=== PATIENT | female | born 1950 | race Caucasian/White ===

== ENCOUNTER → 2017-12-07 | Outpatient (CLI) | payer MEDICARE | END | disposition home or self-care (01) | LOC: RAD 12:20 | DX: M25.552 Pain in left hip (principal); I10 Essential (primary) hypertension; K21.9 Gastro-esophageal reflux disease without esophagitis; G89.29 Other chronic pain | CPT/HCPCS: 73502 ==

== ENCOUNTER 2020-01-20 09:20 | Emergency (ER) | payer BC, MEDICARE ==
[~2020-01-20] VITALS: Ht 157.5 cm; Wt 65.9 kg
[~2020-01-20 09:20] MED LIST: ALPR0.254 PO; AMLO5TAB10 PO; ASPI81TA50 PO; BENA20TA4 PO; DICL75TA PO; FERR-36 PO; FLAX10003 PO; HYDR15SO6 PO; MULT-212 PO; OMEG500C PO; OMEP40CA45 PO; POLY17PO29 PO; PRAV40TA2 PO
[2020-01-20] MEDS ORDERED: MECLIZINE HCL 12.5 MG TABLET. PO ONE (11:30)
--- NOTE | 2020-01-20 11:30 | PHYS DOC ---
Past Medical History Past Medical History: Hypertension, Other Additional Past Medical Histor: VERTIGO (LATESHA FAUSTIN APRN) Past Surgical History: Tubal ligation, Other Additional Past Surgical Histo: HIATAL HERNIA REPAIR (LATESHA FAUSTIN APRN) Smoking Status: Former Smoker Alcohol Use: Occasionally (LATESHA FAUSTIN APRN) General Adult EDM: Chief Complaint: MECHANICAL FALL HPI: HPI: Patient is a 70 year old female with history of hypertension, vertigo, who presents to the ED today complaining of a 5 out of 10 intermittent throbbing posterior head pain, posterior neck pain, mid and low back pain that began after falling this morning. 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 Patient denies any loss of consciousness. Denies any nausea, vomiting. (LATESHA FAUSTIN APRN) Review of Systems: Review of Systems: Constitutional: Denies fever or chills. [] Eyes: Denies change in visual acuity. [] HENT: Denies nasal congestion or sore throat. [] Respiratory: Denies cough or shortness of breath. [] Cardiovascular: Denies chest pain or edema. [] GI: Denies abdominal pain, nausea, vomiting, bloody stools or diarrhea. [] : Denies dysuria. [] Musculoskeletal: Reports posterior neck pain, mid and low back pain Integument: Denies rash. [] Neurologic: Reports head pain, denies focal weakness or sensory changes. [] Endocrine: Denies polyuria or polydipsia. [] Lymphatic: Denies swollen glands. [] Psychiatric: Denies depression or anxiety. [] (LATESHA FAUSTIN APRN) Heart Score: Risk Factors: Risk Factors: DM, Current or recent (<one month) smoker, HTN, HLP, family history of CAD, obesity. Risk Scores: Score 0 - 3: 2.5% MACE over next 6 weeks - Discharge Home Score 4 - 6: 20.3% MACE over next 6 weeks - Admit for Clinical Observation Score 7 - 10: 72.7% MACE over next 6 weeks - Early Invasive Strategies (LATESHA FAUSTIN APRN) Current Medications: Current Medications Medications (Trade) Dose Ordered Sig/Eloisa Start Time Stop Time Status Last Admin Dose Admin Meclizine HCl (Antivert) 12.5 mg 1X ONCE 01/20/20 11:30 01/20/20 11:31 (LATESHA FAUSTIN APRN) Allergies: Allergies: Allergies Coded Allergies Type Severity Reaction Last Updated Verified No Known Drug Allergies 09/30/15 No (LATESHA FAUSTIN APRN) Physical Exam: PE: Constitutional: Well developed, well nourished, no acute distress, non-toxic appearance. [] HENT: Normocephalic, atraumatic, bilateral external ears normal, oropharynx moist, no oral exudates, nose normal. [] Eyes: PERRLA, EOMI, conjunctiva normal, no discharge. [] Neck: Normal range of motion, no tenderness, supple, no stridor. [] Cardiovascular:Heart rate regular rhythm, no murmur [] Lungs & Thorax: Bilateral breath sounds clear to auscultation [] Abdomen: Bowel sounds normal, soft, no tenderness, no masses, no pulsatile masses. [] Skin: Warm, dry, no erythema, no rash. [] Back: No tenderness, no CVA tenderness. [] Extremities: No tenderness, no cyanosis, no clubbing, ROM intact, no edema. [] Neurologic: Small bruising noted on the left parietal scalp, alert and oriented X 3, normal motor function, normal sensory function, no focal deficits noted. Cranial nerves II through XII intact Psychologic: Affect normal, judgement normal, mood normal. [] (LATESHA FAUSTIN APRN) Current Patient Data: Vital Signs: Vital Signs Date Time Temp Pulse Resp B/P (MAP) Pulse Ox O2 Delivery O2 Flow Rate FiO2 01/20/20 11:08 98.4 63 16 164/81 (108) 98 Room Air 98.4 (LATESHA FAUSTIN APRN) EKG: EKG: [] (LATESHA FAUSTIN APRN) Radiology/Procedures: Radiology/Procedures: []PROCEDURE: CT LUMBAR SPINE WO CONTRAST CT thoracic and lumbar spine without contrast Indication: Fall today, back pain Technique: Noncontrast CT imaging was performed of the thoracic and lumbar spine, multiplanar reconstruction images submitted. One or more of the following individualized dose reduction techniques were utilized for this examination: 1. Automated exposure control 2. Adjustment of the mA and/or kV according to patient size 3. Use of iterative reconstruction technique. Comparison: None Thoracic spine: Findings: No acute thoracic spine fracture is identified. There is fhdc-km-jwxvdsgm midthoracic dextroscoliosis, very mild superior thoracic levoscoliosis. Thoracic vertebral body stature and AP alignment are overall maintained. There is multilevel variable thoracic degenerative disc disease greatest T7-8 through T9-10. There is multilevel facet degenerative change, contributes to some variable multilevel thoracic neural foramina compromise. Neural foramina compromise is greatest on the right at T2-3, T5-T6, T9-10 and on the left at T2-3, T6-7, T8-9, T9-10. No significant thoracic spinal stenosis is identified on this nonmyelographic exam, mild indentation upon the posterior thecal sac by facet degenerative change such as bilaterally at T10-11 and on the left at T9-T10. There is fat-containing right Bochdalek hernia. There is xmquj-sa-duibhmnm hiatal hernia. There may be degree of wall thickening of the esophagus. IMPRESSION: 1. No acute thoracic spine fracture is identified. 2. 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 3. There is variable multilevel thoracic neural foramina compromise due to facet degenerative change. 4. There is hiatal hernia. There may be esophageal wall thickening. Lumbar spine FINDINGS: No acute lumbar spine fracture is identified by CT. Vertebral body stature is mostly maintained other than large superior L5-S1 Schmorl's node. There is minimal grade 1 anterior spondylolisthesis at L4-5. There is advanced degenerative disc disease at L2-3 and L3-4, to a somewhat lesser degree at other levels of the lumbar spine. There is yjej-kw-xplnhmbb levoscoliosis centered upon the mid lumbar spine. There is very mild left lateral subluxation L3 relative L4. There is multilevel lumbar facet degenerative change. There is suspected jquo-fw-aeucljuh narrowing of the far lateral recesses bilaterally at L4-5 from posteriorly by facets and ligamentum flavum, probable mild narrowing of the far lateral recesses bilaterally at L3-4. There is diverticulosis of the visualized sigmoid colon. IMPRESSION: 1.No acute lumbar spine fracture is identified by CT. 2. There is variable lateral recess stenosis greatest bilaterally at L4-5. 3. There is multilevel degenerative disc disease greatest at L2-3 and L3-4. 4. There is lumbar levoscoliosis. There is mild abnormal alignment as stated most notable grade 1 anterior spondylolisthesis at L4-5. There is multilevel lumbar facet degenerative change. Electronically signed by: Kathy Guerrero MD (01/20/2020 1:33 PM) [id number] DICTATED and SIGNED BY: KATHY GUERRERO MD DATE: 01/20/20 1333 PROCEDURE: LUMBAR SPINE 2-3V LUMBAR SPINE 2-3V 01/20/2020 11:25 AM INDICATION: Pain, fall COMPARISON: None available. TECHNIQUE: 3 views of the lumbar spine provided. FINDINGS/ IMPRESSION: 1. Cortical irregularity involving the posterior superior endplate of L5 may represent a mildly displaced fracture. Further characterization with cross-sectional imaging could be of benefit. Levoconvex scoliosis of the lumbar spine with apex levocurvature at L3-L4. Minimal retrolisthesis of L3 on L4. Grade 1 anterolisthesis of L4 on L5. No definite spondylolysis. 3. Moderate disc height loss at L2-L3, L3-L4 and mild disc height loss at L5-S1 with marginal osteophytosis. 4. Moderate to severe facet arthropathy lower lumbar spine. Electronically signed by: Lenin Poole MD (01/20/2020 12:36 PM) [id number] DICTATED and SIGNED BY: LENIN POOLE MD DATE: 01/20/20 1236 PROCEDURE: CT HEAD AND CERVICAL SPINE WO CT Head without contrast 01/20/2020 11:45 AM Indication: Reason: FELL TODAY, HIT HEAD, HEAD AND NECK PAIN / Spl. Instructions: / History: Comparison: None Findings: No intracranial hemorrhage is seen. No evidence of acute territorial infarct is seen. Note that CT is limited in sensitivity for acute ischemia. Atrophic changes are noted, more prominently bifrontal regions . There is patchy periventricular and deep white matter hypoattenuation which is nonspecific, but most commonly relates to chronic small vessel disease. No abnormal extra axial fluid collection is identified. No mass effect or midline shift is seen. No acute osseous abnormalities are seen. Impression: 1. No acute intracranial process identified 2. Age-related atrophy, and evidence of chronic small vessel disease as described CT cervical spine without contrast. 01/20/2020 11:45 AM Indication:Reason: FELL TODAY, HIT HEAD, HEAD AND NECK PAIN / Spl. Instructions: / History: Comparison Study: None Technique: Multidetector CT imaging of the cervical spine was obtained without administration of contrast. Findings: There is no evidence of acute fracture or alignment abnormality of the cervical spine. There is significant loss of disc space at C3-C6. Calcification of the ligamentum flavum is seen at C6 extending cephalad with mild canal narrowing and left neural foraminal narrowing. Degenerative facet arthrosis noted. The atlantoaxial articulation remains intact. The craniocervical junction remains intact. No acute soft tissue changes are seen. Impression: Degenerative changes of cervical spine without evidence of acute fracture or alignment abnormality CT DOSING PQRS STATEMENT: One or more of the following individualized dose reduction techniques were utilized for this examination: 1. Automated exposure control 2. Adjustment of the mA and/or kV according to patient size 3. Use of iterative reconstruction technique Electronically signed by: Brandon Saavedra MD (01/20/2020 12:19 PM) [id number] DICTATED and SIGNED BY: BRANDON SAAVEDRA MD DATE: 01/20/201218 (LATESHA FAUSTIN APRN) Course & Med Decision Making: Course & Med Decision Making Pertinent Labs and Imaging studies reviewed. (See chart for details) This is a 70-year-old female patient presenting to the ED today with posterior head pain, neck pain, mid and low back pain status post falling today. No loss of consciousness. CT of the head and cervical spine are negative for any acute findings. X-rays of the thoracic and lumbar spine were noted for possible L5 fracture with recommendation for CT. CT of the thoracic and lumbar spine were done which were negative for any acute findings. Patient was discharged to home. Ice elevation encouraged. Follow-up with PCP in 1 to 2 weeks. (LATESHA FAUSTIN APRN) Dragon Disclaimer: Dragon Disclaimer: This electronic medical record was generated, in whole or in part, using a voice recognition dictation system. (LATESHA FAUSTIN APRN) Departure Departure Impression: Primary Impression: Fall from standing Qualified Codes: W19.XXXA - Unspecified fall, initial encounter Additional Impressions: Scalp contusion Qualified Codes: S00.03XA - Contusion of scalp, initial encounter Closed head injury Qualified Codes: S09.90XA - Unspecified injury of head, initial encounter Contusion of thoracic wall Qualified Codes: S20.229A - Contusion of unspecified back wall of thorax, initial encounter Lumbar contusion Qualified Codes: S30.0XXA - Contusion of lower back and pelvis, initial encounter Acute cervical sprain Qualified Codes: S13.9XXA - Sprain of joints and ligaments of unspecified parts of neck, initial encounter Disposition: 01 HOME, SELF-CARE Condition: STABLE Referrals: KATHY WAGNER MD (PCP) Follow-up in 1 to 2 weeks Patient Instructions: Contusion, Fall Prevention and Home Safety Additional Instructions: You were evaluated in the emergency room after falling, your CAT scan of the head, neck, mid and low back were negative for any acute findings. Try to ice and elevate the affected areas. Follow-up with your doctor in 1 to 2 weeks. Co me back to the ED at any point symptoms worsen or you have any new concerning symptoms including uncontrolled pain, uncontrolled nausea vomiting, excessive sleepiness, confusion. Scripts Hydrocodone/Apap 5-325 (NORCO 5-325 TABLET) 1 Each Tablet 1 TAB PO Q6HRS, #10 TAB Prov: LATESHA FAUSTIN APRN 01/20/20 Justicifation of Admission Dx: Justifications for Admission: Justification of Admission Dx: N/A (LATESHA FAUSTIN APRN) Attending Signature Attending Signature I have reviewed the PA/CELL TUBER MACHINE's note and plan of care. I was available for consultation as needed during the patient's visit in the emergency department. I agree with the clinical impression, plan, and disposition. (GEORGE HAWK DO) LATESHA FAUSTIN APRN Jan 20, 2020 11:30 GEORGE HAWK DO Jan 20, 2020 14:46
--- NOTE | 2020-01-20 12:22 | RAD ---
CT Head without contrast 01/20/2020 11:45 AM Indication: Reason: FELL TODAY, HIT HEAD, HEAD AND NECK PAIN / Spl. Instructions: / History: Comparison: None Findings: No intracranial hemorrhage is seen. No evidence of acute territorial infarct is seen. Note that CT is limited in sensitivity for acute ischemia. Atrophic changes are noted, more prominently bifrontal regions . There is patchy periventricular and deep white matter hypoattenuation which is nonspecific, but most commonly relates to chronic small vessel disease. No abnormal extra axial fluid collection is identified. No mass effect or midline shift is seen. No acute osseous abnormalities are seen. Impression: 1. No acute intracranial process identified 2. Age-related atrophy, and evidence of chronic small vessel disease as described CT cervical spine without contrast. 01/20/2020 11:45 AM Indication:Reason: FELL TODAY, HIT HEAD, HEAD AND NECK PAIN / Spl. Instructions: / History: Comparison Study: None Technique: Multidetector CT imaging of the cervical spine was obtained without administration of contrast. Findings: There is no evidence of acute fracture or alignment abnormality of the cervical spine. There is significant loss of disc space at C3-C6. Calcification of the ligamentum flavum is seen at C6 extending cephalad with mild canal narrowing and left neural foraminal narrowing. Degenerative facet arthrosis noted. The atlantoaxial articulation remains intact. The craniocervical junction remains intact. No acute soft tissue changes are seen. Impression: Degenerative changes of cervical spine without evidence of acute fracture or alignment abnormality CT DOSING PQRS STATEMENT: One or more of the following individualized dose reduction techniques were utilized for this examination: 1. Automated exposure control 2. Adjustment of the mA and/or kV according to patient size 3. Use of iterative reconstruction technique Electronically signed by: Brandon Hanks MD (01/20/2020 12:19 PM) [place] [id number]
--- NOTE | 2020-01-20 12:32 | RAD ---
THORACIC SPINE 3V 01/20/2020 11:25 AM INDICATION: Pain, fall COMPARISON: None available. TECHNIQUE: 3 views of the thoracic spine are provided. FINDINGS/ IMPRESSION: 1. Dextro convex scoliosis of the thoracic spine centered at T8-T9. 2. 12 paired ribs. No acute fracture is identified. 3. Moderate cervical spondylosis centered at C3-C4, C4-C5, C5-C6 and C6-7. 4. Mild to moderate disc height loss in the mid to lower thoracic spine with endplate sclerosis compatible with mild to moderate thoracic spondylosis. Findings are most significant at T8-T9 and T9-T10. Electronically signed by: Halima Williamson MD (01/20/2020 12:29 PM) [id number]
--- NOTE | 2020-01-20 12:38 | RAD ---
LUMBAR SPINE 2-3V 01/20/2020 11:25 AM INDICATION: Pain, fall COMPARISON: None available. TECHNIQUE: 3 views of the lumbar spine provided. FINDINGS/ IMPRESSION: 1. Cortical irregularity involving the posterior superior endplate of L5 may represent a mildly displaced fracture. Further characterization with cross-sectional imaging could be of benefit. Levoconvex scoliosis of the lumbar spine with apex levocurvature at L3-L4. Minimal retrolisthesis of L3 on L4. Grade 1 anterolisthesis of L4 on L5. No definite spondylolysis. 3. Moderate disc height loss at L2-L3, L3-L4 and mild disc height loss at L5-S1 with marginal osteophytosis. 4. Moderate to severe facet arthropathy lower lumbar spine. Electronically signed by: Halima Williamson MD (01/20/2020 12:36 PM) [id number]
--- NOTE | 2020-01-20 13:36 | RAD ---
CT thoracic and lumbar spine without contrast Indication: Fall today, back pain Technique: Noncontrast CT imaging was performed of the thoracic and lumbar spine, multiplanar reconstruction images submitted. One or more of the following individualized dose reduction techniques were utilized for this examination: 1. Automated exposure control 2. Adjustment of the mA and/or kV according to patient size 3. Use of iterative reconstruction technique. Comparison: None Thoracic spine: Findings: No acute thoracic spine fracture is identified. There is tfhh-ip-yubwrxxa midthoracic dextroscoliosis, very mild superior thoracic levoscoliosis. Thoracic vertebral body stature and AP alignment are overall maintained. There is multilevel variable thoracic degenerative disc disease greatest T7-8 through T9-10. There is multilevel facet degenerative change, contributes to some variable multilevel thoracic neural foramina compromise. Neural foramina compromise is greatest on the right at T2-3, T5-T6, T9-10 and on the left at T2-3, T6-7, T8-9, T9-10. No significant thoracic spinal stenosis is identified on this nonmyelographic exam, mild indentation upon the posterior thecal sac by facet degenerative change such as bilaterally at T10-11 and on the left at T9-T10. There is fat-containing right Bochdalek hernia. There is kewpx-cw-iozzpxtu hiatal hernia. There may be degree of wall thickening of the esophagus. IMPRESSION: 1. No acute thoracic spine fracture is identified. 2. 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 3. There is variable multilevel thoracic neural foramina compromise due to facet degenerative change. 4. There is hiatal hernia. There may be esophageal wall thickening. Lumbar spine FINDINGS: No acute lumbar spine fracture is identified by CT. Vertebral body stature is mostly maintained other than large superior L5-S1 Schmorl's node. There is minimal grade 1 anterior spondylolisthesis at L4-5. There is advanced degenerative disc disease at L2-3 and L3-4, to a somewhat lesser degree at other levels of the lumbar spine. There is vjov-rz-tipmfjtd levoscoliosis centered upon the mid lumbar spine. There is very mild left lateral subluxation L3 relative L4. There is multilevel lumbar facet degenerative change. There is suspected hptx-no-qmbitlgu narrowing of the far lateral recesses bilaterally at L4-5 from posteriorly by facets and ligamentum flavum, probable mild narrowing of the far lateral recesses bilaterally at L3-4. There is diverticulosis of the visualized sigmoid colon. IMPRESSION: 1.No acute lumbar spine fracture is identified by CT. 2. There is variable lateral recess stenosis greatest bilaterally at L4-5. 3. There is multilevel degenerative disc disease greatest at L2-3 and L3-4. 4. There is lumbar levoscoliosis. There is mild abnormal alignment as stated most notable grade 1 anterior spondylolisthesis at L4-5. There is multilevel lumbar facet degenerative change. Electronically signed by: Heri Shukla MD (01/20/2020 1:33 PM) [id number]
--- NOTE | 2020-01-20 13:36 | RAD ---
CT thoracic and lumbar spine without contrast Indication: Fall today, back pain Technique: Noncontrast CT imaging was performed of the thoracic and lumbar spine, multiplanar reconstruction images submitted. One or more of the following individualized dose reduction techniques were utilized for this examination: 1. Automated exposure control 2. Adjustment of the mA and/or kV according to patient size 3. Use of iterative reconstruction technique. Comparison: None Thoracic spine: Findings: No acute thoracic spine fracture is identified. There is sbet-ka-miyzzfmm midthoracic dextroscoliosis, very mild superior thoracic levoscoliosis. Thoracic vertebral body stature and AP alignment are overall maintained. There is multilevel variable thoracic degenerative disc disease greatest T7-8 through T9-10. There is multilevel facet degenerative change, contributes to some variable multilevel thoracic neural foramina compromise. Neural foramina compromise is greatest on the right at T2-3, T5-T6, T9-10 and on the left at T2-3, T6-7, T8-9, T9-10. No significant thoracic spinal stenosis is identified on this nonmyelographic exam, mild indentation upon the posterior thecal sac by facet degenerative change such as bilaterally at T10-11 and on the left at T9-T10. There is fat-containing right Bochdalek hernia. There is ujjxu-nx-myqvlbdx hiatal hernia. There may be degree of wall thickening of the esophagus. IMPRESSION: 1. No acute thoracic spine fracture is identified. 2. 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 3. There is variable multilevel thoracic neural foramina compromise due to facet degenerative change. 4. There is hiatal hernia. There may be esophageal wall thickening. Lumbar spine FINDINGS: No acute lumbar spine fracture is identified by CT. Vertebral body stature is mostly maintained other than large superior L5-S1 Schmorl's node. There is minimal grade 1 anterior spondylolisthesis at L4-5. There is advanced degenerative disc disease at L2-3 and L3-4, to a somewhat lesser degree at other levels of the lumbar spine. There is ifei-jw-ecylthab levoscoliosis centered upon the mid lumbar spine. There is very mild left lateral subluxation L3 relative L4. There is multilevel lumbar facet degenerative change. There is suspected lvll-zv-mzfbixji narrowing of the far lateral recesses bilaterally at L4-5 from posteriorly by facets and ligamentum flavum, probable mild narrowing of the far lateral recesses bilaterally at L3-4. There is diverticulosis of the visualized sigmoid colon. IMPRESSION: 1.No acute lumbar spine fracture is identified by CT. 2. There is variable lateral recess stenosis greatest bilaterally at L4-5. 3. There is multilevel degenerative disc disease greatest at L2-3 and L3-4. 4. There is lumbar levoscoliosis. There is mild abnormal alignment as stated most notable grade 1 anterior spondylolisthesis at L4-5. There is multilevel lumbar facet degenerative change. Electronically signed by: Heri Shukla MD (01/20/2020 1:33 PM) [id number]
[2020-01-20 13:42] VITALS: BP 136/71
[2020-01-20] MEDS ORDERED: HYDR-3164 PO (14:01)
== END 2020-01-20 14:08 | disposition home or self-care (01) ==
LOC: ER 09:20
DX: S13.9XXA Sprain of joints and ligaments of unspecified parts of neck, initial encounter (principal); S00.03XA Contusion of scalp, initial encounter; S30.0XXA Contusion of lower back and pelvis, initial encounter; S20.229A Contusion of unspecified back wall of thorax, initial encounter; M43.16 Spondylolisthesis, lumbar region; K57.90 Diverticulosis of intestine, part unspecified, without perforation or abscess without bleeding; I10 Essential (primary) hypertension; Z87.891 Personal history of nicotine dependence; Z98.51 Tubal ligation status; W18.39XA Other fall on same level, initial encounter; Y93.89 Activity, other specified; Y92.89 Other specified places as the place of occurrence of the external cause; Y99.8 Other external cause status
CPT/HCPCS: 70450; 72072; 72100; 72125; 72128; 72131; 99285-25; J8597

== ENCOUNTER → 2020-07-10 | Outpatient (CLI) | payer BC, MEDICARE ==
[~2020-07-10] MED LIST changes: +AMLO-186 PO; -AMLO5TAB10 PO; +HYDR-3164 PO
--- NOTE | 2020-07-10 14:41 | RAD ---
EXAM: Carotid Doppler sonogram. HISTORY: Transient ischemic attack. Atherosclerosis. TECHNIQUE: Cai scale and color Doppler sonographic evaluation of the neck with spectral waveform carolyn lysis was performed and static images are submitted for review. FINDINGS: The peak systolic velocity within the right common carotid artery is 102 cm/sec. The peak s ystolic velocity within the right internal carotid artery is 57 cm/sec and the end diastolic velocity within the right internal carotid artery is 13 cm/sec. The right ICA/CCA ratio is 0.43. The peak systolic velocity within the left common carotid artery is 85 cm/sec. The peak systolic [place] within the left internal carotid artery is 69 cm/sec and the end diastolic velocity within the l eft internal carotid artery is 21 cm/sec. The left ICA/CCA ratio is 0.81. There is normal antegrade flow within both vertebral arteries. IMPRESSION: No Doppler evidence of a relatively significant stenosis. PQRS Compliance Statement - Stenosis calculations for CT, MR and conventional angiography are based u jason measurement of the distal ICA diameter in accordance with the NASCET methodology. Stenosis calcu lations for carotid ultrasound studies are derived from validated velocity criteria which are known t o correlate with the NASCET methodology. Electronically signed by: Daniela Sy MD (07/10/2020 2:38 PM) [id number]
== END ==
LOC: US 13:06
PROVIDERS: ATTEND Family Medicine
DX: G45.9 Transient cerebral ischemic attack, unspecified (principal)
CPT/HCPCS: 93880

== ENCOUNTER → 2021-03-17 | Outpatient (CLI) | payer MEDICARE ==
[~2021-03-17] MED LIST changes: -BENA20TA4 PO; +BENA20TA84 PO; -OMEP40CA45 PO; +OMEP40CA7 PO
--- NOTE | 2021-03-17 14:09 | KCIC ---
INDICATION: Screening for osteopenia/osteoporosis. Reason: POST MENOPAUSAL / Spl. Instructions: / H istory: COMPARISON: None. TECHNIQUE: Bone densitometry was performed through the lumbar spine and proximal femur. IMPRESSION: Lumbar Spine: BMD: 1.14 T-Score: 0.9 Range: Normal. Degenerative changes the spine with mild scoliotic curvature. Proximal Femur: BMD: 0.81 T-Score: -1.1 Range: Osteopenic World [employer] Organization Criteria for Bone Density: T-Score: > -1.0: Normal Range < -1.0 to -2.5: Osteopenic Range < -2.5: Osteoporotic Range Electronically signed by: Wu Farrell MD (03/17/2021 2:06 PM) [id number]
== END ==
LOC: KCIC DEXA 12:54
PROVIDERS: ATTEND Family Medicine
DX: Z13.820 Encounter for screening for osteoporosis (principal); M85.88 Other specified disorders of bone density and structure, other site; M81.0 Age-related osteoporosis without current pathological fracture; M41.80 Other forms of scoliosis, site unspecified; M47.819 Spondylosis without myelopathy or radiculopathy, site unspecified
CPT/HCPCS: 77080